=== PATIENT | male | born 1985 | race Caucasian/White ===

== ENCOUNTER 2025-02-25 10:41 | Emergency (ER) | payer SELFPAY ==
[2025-02-25 10:51] VITALS: BP 166/82; PULSE 84; RESP 16; TEMP 36.1; O2SAT 98
--- NOTE | 2025-02-25 10:55 | ED_ITS ---
HPI - Skin/Abscess/Foreign Bdy General Chief complaint: Skin/Abscess/Foreign Body Stated complaint: ABSCESS ON BACK Time Seen by Provider: 02/25/25 10:55 Source: patient Mode of arrival: ambulatory Limitations: no limitations History of Present Illness HPI narrative: 39 yo M presents with c/o pain to cyst of back. Has had cyst to back from approx. 10 yrs. Never bothered him. Started to become sore the past few days. told him it looked red and swollen. All systems reviewed and negative except as noted above. Related Data Allergies Allergy/AdvReac Type Severity Reaction Status Date / Time No Known Allergies Allergy Verified 02/25/25 10:57 PMFSH Comments At time of signature, agree with nursing past medical, surgical, social and family history. There is no relevant family history pertinent to the presenting complaint. Exam Narrative: GENERAL: This is a well-nourished, well-developed patient, in no apparent distress. HEAD: normocephalic, atraumatic. EYES: PERRL. Sclera clear/white. Vision is grossly intact. EARS: External ears normal NOSE: External nose normal NECK: Neck supple, non-tender without lymphadenopathy, masses or thyromegaly. CARDIOVASCULAR: Regular rate and rhythm without murmurs, gallops, or rubs. RESPIRATORY: Clear to auscultation. Breath sounds equal bilaterally. No wheezes, rales, or rhonchi. SKIN: warm, Dry, intact with no suspicious lesions or rash, good texture and turgor. NEURO: awake, alert, and oriented to person, place and time. There were no obvious focal neurologic abnormalities. EXTREMITIES: No joint tenderness, effusion, or edema noted. BACK: cyst 4cm diameter to L upper back, mild fluctuance. mild erythema. Course Course Level of Care: Express Care Visit Vital Signs Vital signs: Vital Signs Temperature 36.1 C L 02/25/25 10:51 Pulse Rate 84 02/25/25 10:51 Respiratory Rate 16 02/25/25 10:51 Blood Pressure 166/82 H 02/25/25 10:51 Pulse Oximetry 98 02/25/25 10:51 Temperature 36.1 C L 02/25/25 10:51 Pulse Rate 84 02/25/25 10:51 Respiratory Rate 16 02/25/25 10:51 Blood Pressure 166/82 H 02/25/25 10:51 Pulse Oximetry 98 10/22/25 10:51 reviewed Procedures Abscess I/D back: Date of Incision: 02/25/25 Time of Incision: 11:00 Side (if applicable): left Sedation/analgesia: none Local Anesthetic: lidocaine 2% Amount of anesthesia used (mL): 4 Technique: incised with #11 blade Irrigation: Yes Packing used?: plain I&D Results: Blood and Other (thick sebaceous drainage) MDM - Skin/Abscess/Foreign Bdy MDM Narrative Medical decision making narrative: I and D of cyst. pt tolerated well. will treat infected cyst with clindamycin. recommend follow up with PCP. Differential Diagnosis Differential diagnosis: Likely abscess of skin or subcutaneous tissue, cellulitis and other (cyst) Discharge Plan Discharge Clinical Impression: Epidermoid cyst of skin of back Patient Disposition: Home Condition: Stable Instructions: Antibiotic Form, Cyst (ED) Additional Instructions: Take antibiotic as prescribed until gone. Remove packing in 48 hours. Take ibuprofen or Tylenol every 6-8 hours as needed for pain. Follow-up with your primary care physician as needed. Patient Language: Portuguese Prescriptions: New clindamycin HCl 300 mg capsule 300 mg PO Q8H 10 Days Qty: 30 0RF Follow-up/Referrals: Mercedes,Guero [Other] Time of Disposition: 11:24
== END 2025-02-25 11:27 | disposition home or self-care (01) ==
PROVIDERS: Emergency Provider Nurse Practitioner Family
DX: L72.0 Epidermal cyst (principal)
CPT/HCPCS: 10061; 99203; G0463; J2003